=== PATIENT | male | born 1975 | race Caucasian/White ===

== ENCOUNTER → 2023-04-11 | Outpatient (CLI) | payer BC ==
--- NOTE | 2023-04-11 15:16 | US ---
EXAMINATION TYPE: US thyroid st tissue head/neck DATE OF EXAM: 04/11/2023 COMPARISON: NONE CLINICAL INDICATION: Male, 48 years old with history of R22.1 LOCALIZED SWELLING, MASS AND LUMP, NECK ; Lump right neck GLAND SIZE: Right Lobe: 9.0 x 3.8 x 5.1 cm Overall Parenchyma: heterogenous Left Lobe: 7.2 x 2.5 x 3.9 cm Overall Parenchyma: heterogenous Isthmus Thickness: 0.9 cm NODULES RIGHT: # of nodules measured on right: 0 LEFT: # of nodules measured on left: 0 ISTHMUS: # of nodules measured in the isthmus: 0 Bilateral neck scanned, no evidence of lymphadenopathy. IMPRESSION: Enlarged thyroid, greater on the right, extremely heterogeneous, difficult to evaluate for nodules
== END | disposition home or self-care (01) ==
LOC: RADUSWWP 14:20
PROVIDERS: ATTEND Family Medicine
DX: E04.9 Nontoxic goiter, unspecified (principal); E66.9 Obesity, unspecified; Z68.39 Body mass index [BMI] 39.0-39.9, adult
CPT/HCPCS: 76536

== ENCOUNTER 2023-05-20 10:28 | Day surgery (SDC) | payer BC ==
[2023-05-18 10:04] VITALS: BMI 34.9
[~2023-05-20 10:28] MED LIST: LIDOCAINE 1% (10MG/ML) FOR IV START INTRADERMA PRN
[2023-05-20 11:09] VITALS: TEMP 97.7
[2023-05-20] MEDS: LACTATED RINGERS 1,000 ML IV SCH ×2 (11:11→12:13)
[2023-05-20] MEDS ORDERED: PROPOFOL 10 MG/ML 20 ML VIAL IV ONE (12:14)
--- NOTE | 2023-05-20 12:34 | P.PCN ---
Date of Procedure: 05/20/23 Procedure(s) Performed: BRIEF HISTORY: Patient is a 48-year-old pleasant white male scheduled for an elective colonoscopy as a part of screening for colon cancer. PROCEDURE PERFORMED: Colonoscopy with snare polypectomy. PREOPERATIVE DIAGNOSIS: Screening for colon cancer. IV sedation per Anesthesia. PROCEDURE: After informed consent was obtained, the patient, was brought into the endoscopy unit. IV sedation was administered by Anesthesia under continuous monitoring. Digital rectal examination was normal. Initially the Olympus CF-160 flexible video colonoscope was then inserted in the rectum, gradually advanced into the cecum without any difficulty. Careful examination was performed as the scope was gradually being withdrawn. Ileocecal valve and the appendiceal orifice were visualized and appeared normal. Prep was excellent. Mucosa of the cecum, ascending colon, a normal. In the transverse colon there was a 5 mm sessile polyp that was removed by cold snare polypectomy. Rest of transverse colon, descending colon, sigmoid colon, and rectum appeared normal. Retroflexion was performed in the rectum and no lesions were seen. The patient tolerated the procedure well. IMPRESSION: 5 mm transverse colon polyp serous posterior polypectomy Rest of the colon appeared normal appeared normal. I RECOMMENDATIONS: Findings of this examination were discussed with the patient as well as his family. He was advised to follow with the biopsy results. If the biopsy results adenoma he can have a repeat colonoscopy in 5 years..
[2023-05-20 13:04] VITALS: BP 138/87; PULSE 60; RESP 18
== END 2023-05-20 13:21 | disposition home or self-care (01) ==
LOC: ORWHC2ENDO 10:28
PROVIDERS: ATTEND Internal Medicine Gastroenterology
DX: Z12.11 Encounter for screening for malignant neoplasm of colon (principal); D12.3 Benign neoplasm of transverse colon; Z79.899 Other long term (current) drug therapy
CPT/HCPCS: 88305; 45385; J2704

== ENCOUNTER → 2023-06-22 | Outpatient (CLI) | payer BC ==
--- NOTE | 2023-06-23 09:46 | NM ---
EXAMINATION TYPE: NM thyroid image w uptake DATE OF EXAM: 06/23/2023 COMPARISON: Thyroid ultrasound 04/11/2023 CLINICAL INDICATION: Male, 48 years old with history of E04.9; TECHNIQUE: Thyroid iodine uptake is calculated and images performed after the oral administration of 324 uCi 1-123 Capsule. FINDINGS: There is diffuse heterogenous uptake throughout the thyroid gland with decreased uptake wit hin the right thyroid lobe compared to the left. More focal uptake identified within the left thyroid lobe. The 4 hour iodine uptake is calculated at 11.7% (normal range 8-14%). The 24-hour iodine uptak e is calculated at 24% (normal range 15-35%). IMPRESSION: Diffuse heterogenous uptake with decreased uptake within the right thyroid lobe and incre ased uptake within the left thyroid lobe. Difficult to exclude hot or cold nodules when comparing wit h prior thyroid ultrasound. Normal 4 and 24 hour iodine uptake.
== END | disposition home or self-care (01) ==
LOC: RADNMMAIN 08:22
PROVIDERS: ATTEND Family Medicine
DX: E04.9 Nontoxic goiter, unspecified (principal)
CPT/HCPCS: 78014; A9516

== ENCOUNTER 2024-06-27 07:24 | Day surgery (SDC) | payer BC ==
[~2024-06-27 07:24] MED LIST changes: +HYDROmorphone 0.5 MG/0.5 ML SYRINGE IVP PRN; +LACTATED RINGERS 1,000 ML IV SCH; +droPERidol 5 MG/2 ML VIAL IVP ONE
[2024-06-27] MEDS: IV FLUID CONTINUATION 1,000 ML IV ONE (08:25)
[2024-06-27] MEDS: ONDANSETRON 4 MG/2 ML VIAL IVP ONE (08:31)
[2024-06-27] MEDS: DEXAMETHASONE SOD PHOSPHATE 4 MG/ML 1 ML VIAL IV ONE (08:31)
[2024-06-27] MEDS ORDERED: LIDOCAINE 1% INJ 10MG/ML (20 ML MDV) ONE (08:36)
[2024-06-27] MEDS ORDERED: fentaNYL (PF) 50 MCG/ML 2 ML AMP ONE (08:36)
[2024-06-27] MEDS ORDERED: MIDAZOLAM 2 MG/2 ML VIAL ONE (08:36)
[2024-06-27] MEDS ORDERED: PROPOFOL 10 MG/ML 20 ML VIAL IV ONE (08:36)
[2024-06-27] MEDS ORDERED: KETOROLAC 15 MG/ML 1 ML VIAL ONE (08:36)
[2024-06-27] MEDS ORDERED: SUCCINYLCHOLINE CHLORIDE 200 MG/10 ML VIAL IV ONE (08:36)
[2024-06-27 08:48] VITALS: TEMP 97.3
--- NOTE | 2024-06-27 09:12 | P.OP ---
Date of Procedure: 06/27/24 Preoperative Diagnosis: left posterior true vocal cord lesion Postoperative Diagnosis: same Procedure(s) Performed: microlaryngoscopy with excision left true vocal cord lesion Anesthesia: POLIA Surgeon: Juanito Corbin Estimated Blood Loss (ml): 1 Pathology: other (left posterior true vocal cord lesion) Disposition: PACU Indications for Procedure: is a 49-year-old white male who presented for hoarseness. He was noted to have a small left posterior true vocal cord in the area of the arytenoid cartilage- voice has improved since then Operative Findings: small approximate 3 mm white rounded keratotic lesion left posterior true vocal cord Description of Procedure: the patient was brought in the operative suite and placed in a supine position. The patient underwent induction of general anesthesia with oral endotracheal intubation without difficulty. The patient was prepped and draped in usual aseptic fashion.the patient was positioned with shoulder roll prior to this. The tooth guard was placed. Rectal laryngoscopy was performed with systematic evaluation of the base of tongue vallecula both piriform sinuses post cricoid area and endolarynx. With the larynx in good visualization the laryngoscope was placed in suspension and the microscope was brought into position. The larynx was in good visualization and there was a small lesion on the left true vocal cord which was excised grossly entirely with microcup forceps. Hemostasis was g ained spontaneously. Once hemostasis was obtained the laryngoscope and tooth guard were removed. The patient was allowed to emerge from general anesthesia having tolerated procedure well was extubated in the operating suite and transferred to postop recovery area in satisfactory condition.
[2024-06-27 10:31] VITALS: RESP 18
[2024-06-27 10:51] VITALS: BP 132/80; PULSE 69
== END 2024-06-27 11:00 | disposition home or self-care (01) ==
LOC: OR 07:24
PROVIDERS: ATTEND Otolaryngology
DX: J38.3 Other diseases of vocal cords
CPT/HCPCS: 88305